=== PATIENT | female | born 1985 | race American Indian/Alaskan Native ===

== ENCOUNTER 2018-12-04 14:43 | Outpatient (CLI) | payer MEDICAID ==
[2018-12-04 14:58] VITALS: BP 133/78
--- NOTE | 2018-12-04 20:05 | Ultrasound Report ---
FINAL REPORT EXAM: US OB LIMITED HISTORY: well being TECHNIQUE: Real-time sonography was performed of the gravid uterus for amniotic fluid and images are submitted for interpretation. Detailed anatomic survey was not performed PRIORS: None. FINDINGS: There is a single fetus in the uterus in a cephalic presentation. The amniotic fluid index is normal at 14.4 cm. The heart is beating at a rate of 154 beats per minute. IMPRESSION: Normal amniotic fluid index
--- NOTE | 2018-12-04 20:08 | Ultrasound Report ---
FINAL REPORT EXAM: US OB BPP WO NON-STRESS HISTORY: well being TECHNIQUE: Real-time sonography was performed of the gravid uterus for biophysical profile and image s are submitted for interpretation. PRIORS: None. FINDINGS: There is a single fetus in the uterus in a cephalic presentation. The heart is beating at a rate of 154 beats per minute. Biophysical profile: Breathin Movement: 2 Tone: 2 Fluid volume: 2 IMPRESSION: Normal biophysical profile, 06/14
== END 2018-12-04 18:03 | disposition home or self-care (01) ==
LOC: TRG 14:43
PROVIDERS: ATTEND Obstetrics & Gynecology
DX: O47.1 False labor at or after 37 completed weeks of gestation (principal); O24.419 Gestational diabetes mellitus in pregnancy, unspecified control; Z3A.40 40 weeks gestation of pregnancy
CPT/HCPCS: 59025; 76815; 76819

== ENCOUNTER 2018-12-06 11:46 | Inpatient (IN) | payer MEDICAID ==
[2018-12-06] MEDS ORDERED: XYLOCAINE 2% INFILTRATI ONE ×2 (15:35→18:00)
[2018-12-06] MEDS ORDERED: BRETHINE IVP PRN (15:35)
[2018-12-06] MEDS ORDERED: MINERAL OIL PO PRN ×2 (15:35→18:00)
[2018-12-06] MEDS ORDERED: BRETHINE SUB-Q PRN ×2 (15:35→18:00)
[2018-12-06] MEDS ORDERED: LACTATED RINGERS 1,000 ML IV SCH ×2 (16:00→18:00)
[2018-12-06] MEDS ORDERED: PITOCin/NS 30 UNIT/500ML 30 UNITS/500 ML BAG IV SCH (16:00)
[2018-12-06 16:11] LABS: Hematocrit 36.5 % (30.3-42.9); Hemoglobin 11.9 gm/dl (10.1-14.3); Mean Corpuscular HGB Conc 33 % (30-34); Mean Corpuscular Volume 84 fl (79-97); Platelet Count 185 K/mm3 (140-440); Red Blood Count 4.36 M/mm3 (3.65-5.03); Red Cell Distribution Width 16.5 % (13.2-15.2)
[2018-12-06] MEDS ORDERED: PITOCin/NS 20 UNIT/1000ML DRIP 20 UNITS/1,000 ML BAG IV SCH (18:00)
[2018-12-06] MEDS ORDERED: STADOL IV PRN (18:00)
[2018-12-06] MEDS ORDERED: NARCAN 0.4 MG/1 ML IV PRN (18:00)
[2018-12-06] MEDS ORDERED: NARCAN 2 MG/2 ML IV PRN (18:42)
--- NOTE | 2018-12-06 18:42 | Anesthesia Consultation ---
Anesthesia Consult and Med Hx Date of service: 12/06/18 - Airway Anesthetic Teeth Evaluation: Good ROM Head & Neck: Adequate Mental/Hyoid Distance: Adequate Mallampati Class: Class II Intubation Access Assessment: Good - Pulmonary Exam CTA: Yes - Cardiac Exam Cardiac Exam: No Murmur - Pre-Operative Health Status ASA Pre-Surgery Classification: ASA2 Proposed Anesthetic Plan: Epidural - Pulmonary Hx Asthma: No COPD: No Hx Pneumonia: No - Cardiovascular System Hx Hypertension: No - Central Nervous System Hx Seizures: No Hx Psychiatric Problems: No - Endocrine Hx Renal Disease: No Hx End Stage Renal Disease: No Hx Hypothyroidism: No Hx Hyperthyroidism: No - Hematic Hx Anemia: No Hx Sickle Cell Disease: No - Other Systems Hx Alcohol Use: No
--- NOTE | 2018-12-06 18:43 | History and Physical Report ---
History of Present Illness Date of examination: 12/06/18 Date of admission: 12/06/18 12:44 Chief complaint: My water broke at 10:21AM this morning; the fluid was clear History of present illness: Early entry to care, course complicated by Vitamin D Deficiency, Anemia, and a known hx of HSV II (taking Valacyclovir daily). Past History Past Medical History: diabetes (2015: Gestational), other (Hx of Depression) Past Surgical History: D&C (EAB) [employer] History: herpes Family/Genetic History: diabetes, heart disease, hypertension, stroke Social history: no significant social history, single - Obstetrical History Expected Date of Delivery: 12/01/18 Actual Gestation: 40 Week(s) 5 Day(s) : 6 Para: 3 Hx # Term Pregnancies: 3 Spontaneous Abortions: 1 Induced : 1 Number of Living Children: 3 #1 Gender: Male year: 2,[birth year] Birthweight: 3.515 kg Method of Delivery: Vaginal Complications: none #2 Infant Gender: Male year: 2,008 Birthweight: 3.572 kg Method of Delivery: Vaginal Complications: none #3 Gender: Male year: 2,015 Birthweight: 2.268 kg Method of Delivery: Vaginal Gestational age at delivery: 38 Complications: other (induced for IUGR, Gestational Diabetes) Medications and Allergies Allergies Allergy/AdvReac Type Severity Reaction Status Date / Time prednisone Allergy Severe Angioedema Verified 12/04/18 14:47 Home Medications Medication Instructions Recorded Confirmed Last Taken Type valACYclovir [Valtrex] 1 gm PO QDAY 01/05/15 12/01/18 11/30/18 History Vit-Fe Fumar-FA [ 1 tab PO QDAY 12/01/18 12/01/18 11/30/18 History Vitamin] Active Meds: Active Medications Butorphanol Tartrate (Stadol) 2 mg IV Q2H PRN PRN Reason: Pain , Severe (7-10) Last Admin: 12/06/18 18:10 Dose: 2 mg Documented by: Ephedrine Sulfate (Ephedrine Sulfate) 10 mg IV Q2M PRN PRN Reason: Hypotension Lactated Ringer's (Lactated Ringers) 1,000 mls @ 125 mls/hr IV DIRECT JB Last Admin: 12/06/18 18:14 Dose: 125 mls/hr Documented by: Oxytocin/Sodium Chloride (Pitocin/Ns 20 Unit/1000ml Drip) 20 units in 1,000 mls @ 125 mls/hr IV DIRECT JB Oxytocin/Sodium Chloride (Pitocin/Ns 30 Unit/500ml) 30 units in 500 mls @ 1 mls/hr IV TITR JB; Protocol Last Admin: 12/06/18 17:11 Dose: 1 milliunits/min, 1 mls/hr Documented by: Lactated Ringer's (Lactated Ringers) 1,000 mls @ 125 mls/hr IV DIRECT JB Oxytocin/Sodium Chloride (Pitocin/Ns 20 Unit/1000ml Drip) 20 units in 1,000 mls @ 125 mls/hr IV DIRECT JB Mineral Oil (Mineral Oil) 30 ml PO QHS PRN PRN Reason: Constipation Mineral Oil (Mineral Oil) 30 ml PO QHS PRN PRN Reason: Constipation Naloxone HCl (Narcan 0.4 Mg/1 Ml) 0.1 mg IV Q2MIN PRN PRN Reason: Res Rate </= 8 or 02 SAT < 92% Terbutaline Sulfate (Brethine) 0.25 mg SUB-Q ONCE PRN PRN Reason: Hyperstimulation/Hypertonicity Terbutaline Sulfate (Brethine) 0.25 mg IVP ONCE PRN PRN Reason: Hyperstimulation/Hypertonicity Terbutaline Sulfate (Brethine) 0.25 mg SUB-Q ONCE PRN PRN Reason: Hyperstimulation/Hypertonicity Review of Systems All systems: negative - Vital Signs Vital signs: Vital Signs Pulse BP 82 129/75 12/06/18 12:00 12/06/18 12:00 Temp Pulse Resp BP Pulse Ox 98.5 F 71 18 151/73 93 12/06/18 12:36 12/06/18 18:30 12/06/18 18:10 12/06/18 18:26 12/06/18 18:30 - Physical Exam Breasts: Positive: normal Cardiovascular: Regular rate Lungs: Positive: Clear to auscultation, Normal air movement Abdomen: Positive: normal appearance, soft, normal bowel sounds Genitourinary (Female): Positive: normal external genitalia, normal perenium Uterus: Positive: enlarged Anus/Rectum: Positive: normal perianal skin Extremities: Positive: normal - Obstetrical FHR: category 1 Uterine Contraction Monitor Mode: External Cervical Dilatation: 6 (Leaking a large amount of clear fluid) Cervical Effacement Percentage: 80 station: -2 Uterine Contraction Pattern: Regular Uterine Tone Measurement Phase: Resting Uterine Contraction Intensity: Moderate Results Result Diagrams: 12/06/18 15:53 Abnormal lab results 12/06/18 Range/Units 15:53 MCH 27 L (28-32) pg RDW 16.5 H (13.2-15.2) % All other labs normal. Assessment and Plan A: IUP @ 40 5/7 Weeks Category I Tracing SROM GBS Negative P: Admit to L&D per Routine Orders Pitocin Augmentaion Prepare for Epidural Anesthesia
[2018-12-06] MEDS ORDERED: fentaNYL-BUPIV 2 MCG/ML-0.125% 200 MCG/100 ML BAG EPIDURAL SCH (19:00)
[2018-12-06] MEDS ORDERED: NORCO 5/325 PO PRN (20:12)
[2018-12-06] MEDS ORDERED: BENADRYL PO PRN (20:12)
[2018-12-06] MEDS ORDERED: PHENERGAN PR PRN (20:12)
--- NOTE | 2018-12-06 20:19 | Procedure Note ---
OB Delivery Note - Delivery Date of Delivery: 12/06/18 (1953) Surgeon: RYAN CHE Estimated blood loss: other (150) - Vaginal Delivery presentation: vertex Delivery position: OA Intrapartum events: none Delivery augmentation: pitocin Delivery monitor: external FHT, external uterine Route of delivery: Delivery placenta: spontaneous Delivery cord: 3 umbilical vessels Episiotomy: none Delivery laceration: none Anesthesia: epidural Delivery comments: of a live 8'5 male infant over a intact perineum under epidural anesthesia with Apgars of 8 and 9 at 1956 on 12/06/2018. directly to maternal abd/chest, skin to skin contact. Spontaneous delivery of placenta complete and intact with Hill side presenting at 1999. Fundus is firm and midline located 4 below the U. Lochia is scant. Delayed cord clamping and cutting; Cord cut by the mother. Cord blood collected; Placenta discarded. - Infant A at 1 minute: 8 at 5 minutes: 9 Gender: Male (8'5)
[2018-12-06] MEDS: PITOCin/NS 20 UNIT/1000ML DRIP 20 UNITS/1,000 ML BAG IV SCH ×2 (20:24→21:40)
[2018-12-06] MEDS ORDERED: SODIUM CHLORIDE FLUSH SYRINGE 10 ML IV NR (21:00)
[2018-12-06] MEDS: IBUPROFEN PO SCH (22:17)
[2018-12-07] MEDS: IBUPROFEN PO SCH ×3 (05:54→18:43)
[2018-12-07] MEDS ORDERED: BOOSTRIX IM ONE (06:00)
--- NOTE | 2018-12-07 09:15 | Progress Note ---
Assessment and Plan - Patient Problems (1) Status post normal vaginal delivery Current Visit: Yes Status: Acute Plan to address problem: PPD 1 - stable Continue routine PP orders Discharge to home 12/08/18 Follow-up at [facility] in 6 weeks for exam Subjective - Subjective Date of service: 12/07/18 Principal diagnosis: PPD #1; s/p Patient reports: appetite normal, voiding normally, pain well controlled, ambulating normally, no dizzy ambulation : doing well, nursing well Objective - Vital Signs Latest vital signs: Vital Signs Temp Pulse Resp BP BP Pulse Ox 12/07/18 04:20 98.2 F 85 18 125/60 12/06/18 22:00 98.0 F 74 18 123/75 12/06/18 21:08 68 137/65 12/06/18 20:52 90 137/71 12/06/18 20:50 78 L 12/06/18 20:48 85 88 12/06/18 20:45 91 H 92 12/06/18 20:43 79 98 12/06/18 20:38 89 94 12/06/18 20:37 82 132/65 94 12/06/18 20:33 94 H 97 12/06/18 20:28 90 100 12/06/18 20:23 99 H 131/78 96 12/06/18 20:22 97.9 F 90 18 131/78 100 12/06/18 20:18 91 H 98 12/06/18 20:16 87 12/06/18 20:13 89 100 12/06/18 20:11 93 12/06/18 20:08 99 H 141/81 97 12/06/18 19:51 60 129/87 12/06/18 19:49 66 89 12/06/18 19:46 89 97 12/06/18 19:41 69 99 12/06/18 19:36 88 99 12/06/18 19:31 89 99 12/06/18 19:30 87 85 12/06/18 19:24 76 72 L 12/06/18 19:19 73 85 12/06/18 19:18 77 91 12/06/18 19:14 73 100 12/06/18 19:09 61 100 12/06/18 19:04 71 100 12/06/18 19:03 85 125/77 12/06/18 19:01 86 123/70 12/06/18 18:59 71 125/69 97 12/06/18 18:57 67 130/82 12/06/18 18:55 87 140/83 93 12/06/18 18:54 74 97 12/06/18 18:53 80 133/83 12/06/18 18:51 90 118/73 12/06/18 18:49 90 144/81 97 12/06/18 18:47 81 150/86 12/06/18 18:45 90 136/80 12/06/18 18:44 84 96 12/06/18 18:40 18 12/06/18 18:30 71 93 12/06/18 18:26 76 151/73 94 12/06/18 18:25 104 H 98 12/06/18 18:10 18 12/06/18 12:36 98.5 F 78 20 118/61 12/06/18 12:35 78 118/61 12/06/18 12:00 82 129/75 Intake and Output 12/06/18 12/07/18 12/07/18 23:59 07:59 15:59 Intake Total 160.383 480 Output Total 200 1000 Balance -39.617 -520 Intake: IV 160.383 PITOCin/NS 20 UNIT/1000ML 158.333 DRIP 20 units In 1,000 ml @ 125 mls/hr IV DIRECT [facility] Rx#:[id number] PITOCin/NS 30 UNIT/500ML 2.05 30 units In 500 ml @ 1 MILLIUNITS/MIN 1 mls/hr IV TITR JB Rx#:[id number] Oral 480 Output: Urine 200 1000 Void 200 1000 Other: Total, Intake Amount 480 Total, Output Amount 200 500 Estimated Blood Loss 150 - Exam Cardiovascular: Present: Regular rate Lungs: Present: Clear to auscultation Abdomen: Present: normal appearance, soft Vulva: both: normal Uterus: Present: normal, firm, fundal height at umbilicus Extremities: Present: normal Comments: small lochia - Labs Labs: Abnormal lab results 12/06/18 Range/Units 15:53 MCH 27 L (28-32) pg RDW 16.5 H (13.2-15.2) %
--- NOTE | 2018-12-07 09:16 | Discharge Summary ---
Providers - Providers Date of Admission: 12/06/18 12:44 Date of discharge: 12/08/18 Attending physician: WILLIS STONE MD Primary care physician: WILLIS STONE MD Hospitalization Reason for admission: active labor, IUP at term Delivery: Episiotomy: none Laceration: none Other procedures: none complications: none Discharge diagnosis: IUP at term delivered [place] baby: male Hospital course: Uncomplicated Condition at discharge: Stable Disposition: IA-01 TO HOME OR SELFCARE - Discharge Diagnoses (1) Status post normal vaginal delivery Status: Acute Plan - Provider Discharge Summary Activity: routine, no sex for 6 weeks, no heavy lifting 4 weeks, no strenuous exercise Diet: routine Instructions: routine Additional instructions: [] Smoking cessation referral if applicable(refer to patient education folder for contact #) [] Refer to [facility]'s [facility] Booklet Call your doctor immediately for: * Fever > 100.5 * Heavy vaginal bleeding ( >1 pad per hour) * Severe persistent headache * Shortness of breath * Reddened, hot, painful area to leg or breast * Drainage or odor from incision. * Keep incision clean and dry at all times and follow doctor's instructions regarding bathing/showering - Follow up plan Follow up: WILLIS STONE MD [Primary Care Provider] - 6 Weeks (Follow-up at [facility] in 6 weeks for exam)
[2018-12-07 11:50] LABS: Hematocrit 36.1 % (30.3-42.9); Hemoglobin 11.5 gm/dl (10.1-14.3)
[2018-12-07] MEDS ORDERED: AFLURIA QUAD 2018-2019 SYRINGE IM ONE (12:00)
[2018-12-08] MEDS: IBUPROFEN PO SCH (11:58)
[2018-12-08] MEDS ORDERED: AFLURIA QUAD 2018-2019 SYRINGE IM ONE (12:40)
[2018-12-10 11:45] VITALS: BP 124/72
== END 2018-12-08 16:20 | disposition home or self-care (01) | DRG 774 ==
LOC: TRG 11:46 → LD 12:44 → OB 21:50
PROVIDERS: ADMIT Obstetrics & Gynecology; ATTEND Obstetrics & Gynecology
PROC: 10E0XZZ Delivery of Products of Conception, External Approach (ICD-10-PCS; principal; 2018-12-06)
PROC: 3E0R3BZ Introduction of Anesthetic Agent into Spinal Canal, Percutaneous Approach (ICD-10-PCS; 2018-12-06)
PROC: 00HU33Z Insertion of Infusion Device into Spinal Canal, Percutaneous Approach (ICD-10-PCS; 2018-12-06)
DX: O24.92 Unspecified diabetes mellitus in childbirth (principal); O99.344 Other mental disorders complicating childbirth; F32.9 Major depressive disorder, single episode, unspecified; Z82.49 Family history of ischemic heart disease and other diseases of the circulatory system; Z3A.40 40 weeks gestation of pregnancy; Z37.0 Single live birth; Z83.3 Family history of diabetes mellitus; Z82.3 Family history of stroke; Z79.899 Other long term (current) drug therapy
CPT/HCPCS: 36415; 59025; 76815; 76819; 85014; 85018; 85027; 86592; 86850; 86900; 86901; 90471; 90686; 90715; G0378; J0595; J2590; J7120

== ENCOUNTER 2019-09-14 14:00 | Emergency (ER) | payer MEDICAID, OTHER ==
[2019-09-14 14:47] VITALS: BP 116/72
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
== END 2019-09-14 17:26 | disposition home or self-care (01) ==
LOC: ED 14:00
DX: M25.572 Pain in left ankle and joints of left foot (principal); Z79.899 Other long term (current) drug therapy; V49.49XA Driver injured in collision with other motor vehicles in traffic accident, initial encounter; Y93.89 Activity, other specified; Y92.410 Unspecified street and highway as the place of occurrence of the external cause; Y99.8 Other external cause status

== ENCOUNTER 2021-05-31 07:24 | Emergency (ER) | payer MEDICAID, OTHER ==
[2021-05-31] MEDS ORDERED: FAMOTIDINE 20 MG/2 ML INJ IV ONE (08:12)
[2021-05-31] MEDS ORDERED: diphenhydrAMINE 50 MG/ML VIAL IV ONE (08:12)
--- NOTE | 2021-05-31 08:31 | Emergency Department Report ---
ED General Adult HPI - General Chief complaint: Sore Throat Stated complaint: TONGUE AND THROAT SWOLLEN Time Seen by Provider: 05/31/21 08:07 Source: patient Mode of arrival: Ambulatory Limitations: No Limitations - History of Present Illness Initial comments: Patient is 35 years old female with no significant past medical history. Patient presented to the ER complaining of difficulty swallowing and feeling that her throat is closing up on her. Patient stated that her symptoms started approximately around 1:00 this morning. Patient stated that she has been having runny nose cough congestion for the last few days. She thinks that she contracted an upper respiratory infection from her kids. Patient denied any difficulty in breathing. Patient denied taking any antihypertensive medications specifically lisinopril. She stated that she has been taking NyQuil and she thinks allergies most likely from that. - Related Data Home Medications Medication Instructions Recorded Confirmed Last Taken valACYclovir [Valtrex] 1 gm PO QDAY 01/05/15 12/07/18 12/05/18 Vit-Fe Fumar-FA [ 1 tab PO QDAY 12/01/18 12/07/18 12/06/18 Vitamin] Previous Rx's Medication Instructions Recorded Last Taken Type Naproxen [Naprosyn TAB] 500 mg PO BID PRN #14 tablet 09/14/19 Unknown Rx Allergies Allergy/AdvReac Type Severity Reaction Status Date / Time prednisone Allergy Severe Angioedema Verified 12/04/18 14:47 ED Review of Systems ROS: Stated complaint: TONGUE AND THROAT SWOLLEN Other details as noted in HPI Comment: All other systems reviewed and negative Constitutional: denies: chills, fever ENT: throat pain, congestion Respiratory: cough Cardiovascular: denies: chest pain, palpitations Gastrointestinal: denies: abdominal pain, nausea, vomiting, diarrhea, constipation, hematemesis, melena, hematochezia Musculoskeletal: denies: back pain Neurological: denies: headache, weakness, numbness, paresthesias, confusion, abnormal gait Psychiatric: denies: depression ED Past Medical Hx - Past Medical History Hx Hypertension: No Hx Congestive Heart Failure: No Hx Diabetes: No Hx Deep Vein Thrombosis: No Hx Renal Disease: No Hx Sickle Cell Disease: No Hx Seizures: No Hx Asthma: No Hx COPD: No Hx HIV: No Additional medical history: HERPES - Social History Smoking Status: Never Smoker Substance Use Type: None - Medications Home Medications: Home Medications Medication Instructions Recorded Confirmed Last Taken Type valACYclovir [Valtrex] 1 gm PO QDAY 01/05/15 12/07/18 12/05/18 History Vit-Fe Fumar-FA [ 1 tab PO QDAY 12/01/18 12/07/18 12/06/18 History Vitamin] Naproxen [Naprosyn TAB] 500 mg PO BID PRN #14 tablet 09/14/19 Unknown Rx ED Physical Exam - General Limitations: No Limitations General appearance: alert, in no apparent distress - Head Head exam: Present: atraumatic, normocephalic, normal inspection - Eye Eye exam: Present: normal appearance - ENT ENT exam: Present: other (No tongue swelling however there is tonsillar swelling. Uvula is midline with no swelling.) - Neck Neck exam: Present: normal inspection, full ROM. Absent: tenderness, meningismus, lymphadenopathy - Respiratory Respiratory exam: Present: normal lung sounds bilaterally - Cardiovascular Cardiovascular Exam: Present: regular rate, normal rhythm, normal heart sounds - GI/Abdominal GI/Abdominal exam: Present: soft, normal bowel sounds. Absent: distended, tenderness, guarding, rebound, rigid, mass, bruit, pulsatile mass, hernia - Extremities Exam Extremities exam: Present: normal inspection, full ROM, normal capillary refill. Absent: tenderness, pedal edema, joint swelling, calf tenderness - Back Exam Back exam: Present: normal inspection, full ROM. Absent: CVA tenderness (R), CVA tenderness (L) - Neurological Exam Neurological exam: Present: alert, oriented X3, CN II-XII intact, normal gait, reflexes normal. Absent: motor sensory deficit - Psychiatric Psychiatric exam: Present: normal mood - Skin Skin exam: Present: warm, intact, normal color ED Course Vital Signs 05/31/21 05/31/21 05/31/21 07:32 09:00 09:16 Temperature 98.9 F Pulse Rate 88 Respiratory 18 Rate Blood Pressure 118/69 122/71 122/71 O2 Sat by Pulse 96 96 97 Oximetry 05/31/21 09:30 Temperature Pulse Rate Respiratory Rate Blood Pressure 133/63 O2 Sat by Pulse 96 Oximetry ED Medical Decision Making - Lab Data Result diagrams: 05/31/21 08:31 05/31/21 08:31 - Radiology Data Radiology results: report reviewed - Medical Decision Making Patient is 35 years old female with no significant past medical history. Patient presented to the ER complaining of difficulty swallowing and feeling that her throat is closing up on her. Patient stated that her symptoms started approximately around 1:00 this morning. Patient stated that she has been having runny nose cough congestion for the last few days. She thinks that she cont racted an upper respiratory infection from her kids. Patient denied any difficulty in breathing. Patient denied taking any antihypertensive medications specifically lisinopril. She stated that she has been taking NyQuil and she thinks allergies most likely from that. Measure received Benadryl and Pepcid. Patient stated that she is allergic to steroid. Labs reviewed and is unremarkable. CT neck with IV contrast showed prominent tonsillar swelling however there is no airway compromise. Findings concerning for tonsillitis. Patient given prescription for amoxicillin and advised to follow-up with her primary doctor in the next 2 to 3 days and to return to the ER she develop any new symptoms. Critical care attestation.: If time is entered above; I have spent that time in minutes in the direct care of this critically ill patient, excluding procedure time. ED Disposition Clinical Impression: Difficulty swallowing, Acute tonsillitis Disposition: DC-01 TO HOME OR SELFCARE Is pt being admited?: No Condition: Stable Instructions: Upper Respiratory Infection, Adult, Tonsillitis, [id number] Referrals: PRIMARY CARE,MD [Primary Care Provider] - 3-5 Days
[2021-05-31 08:48] LABS: Basophils % (Auto) 0.1 % (0.0-1.8); Eosinophils # (Auto) 0.1 K/mm3 (0.0-0.4); Eosinophils % (Auto) 1.2 % (0.0-4.3); Hemoglobin 14.9 gm/dl (10.1-14.3); Lymphocytes # (Auto) 1.6 K/mm3 (1.2-5.4); Lymphocytes % (Auto) 16.9 % (13.4-35.0); Mean Corpuscular HGB Conc 35 % (30-34); Mean Corpuscular Volume 89 fl (79-97); Monocytes # (Auto) 0.6 K/mm3 (0.0-0.8); Monocytes % (Auto) 6.1 % (0.0-7.3); Platelet Count 215 K/mm3 (140-440); Red Blood Count 4.81 M/mm3 (3.65-5.03); Red Cell Distribution Width 13.9 % (13.2-15.2)
[2021-05-31 09:02] LABS: Blood Urea Nitrogen 13 mg/dL (7-17); Calcium 8.9 mg/dL (8.4-10.2); Hemolysis Index 10
[2021-05-31 09:10] LABS: BUN/Creatinine Ratio 19
[2021-05-31 09:45] VITALS: BP 133/63
--- NOTE | 2021-05-31 10:10 | Cat Scan Report ---
CT neck w con HISTORY: Difficulty swallowing OMNIPAQUE 300 100ML COMPARISON: None. TECHNIQUE: CT of the neck is performed. All CT scans at this location are performed using CT dose red uction for ALARA by means of automated exposure control. FINDINGS: Skull Base: No significant abnormality. Nasopharynx, oropharynx, hypopharynx: No significant abnormality. No mass identified.. Tonsils: Mildly prominent adenoid and palatine tonsils. No peritonsillar abscess. Airway: Patent and without significant abnormality. Salivary glands: No significant abnormality. Thyroid:No significant abnormality. Lymphatics: Prominent level 2 lymph nodes, most likely reactive. Vasculature: No significant abnormality. Osseous Structures: No significant abnormality Additional findings: Moderate mucosal thickening in the paranasal sinuses and soft tissue seen within the nasal cavities raising the possibility of polyps. IMPRESSION: 1. Mildly prominent tonsils, correlate for tonsillitis. No peritonsillar abscess. 2. Paranasal sinus disease and nasal polyps. Signer Name: Nahun Argueta MD Signed: 05/31/2021 10:05 AM Workstation Name: [id number]
== END 2021-05-31 11:57 | disposition home or self-care (01) ==
LOC: ED 07:24
DX: R13.10 Dysphagia, unspecified (principal); J03.90 Acute tonsillitis, unspecified; Z88.8 Allergy status to other drugs, medicaments and biological substances
CPT/HCPCS: 70491; 80048; 84703; 85025; 96374; 96375; 99284; J1200; Q9967